=== PATIENT | female | born 1995 | race African-American/Black ===

== ENCOUNTER 2017-04-11 12:59 | Emergency (ER) | payer SELFPAY ==
[~2017-04-11] VITALS: Ht 185.4 cm; Wt 75.0 kg
[2017-04-11 13:12] VITALS: BP 132/84
[2017-04-11 16:55] LABS: HCG SCREEN NEGATIVE
== END 2017-04-11 18:08 | disposition home or self-care (01) ==
LOC: ER 15:36
DX: S05.10XA Contusion of eyeball and orbital tissues, unspecified eye, initial encounter (principal); H20.9 Unspecified iridocyclitis; H53.149 Visual discomfort, unspecified; Y04.0XXA Assault by unarmed brawl or fight, initial encounter; Y93.89 Activity, other specified; Y99.8 Other external cause status; Y92.69 Other specified industrial and construction area as the place of occurrence of the external cause
CPT/HCPCS: 70486; 84703; 99285